=== PATIENT | male | born 1960 | race Caucasian/White ===

== ENCOUNTER 2018-11-14 09:19 | Day surgery (SDC) | payer BC ==
[~2018-11-14] VITALS: Ht 188 cm; Wt 111.6 kg
[~2018-11-14 09:19] MED LIST: LISI20TA PO; NS 1,000 ML IV ONE; OMEP20CA3 PO; PRAV40TA2 PO; VENTAER INH
[2018-11-14] MEDS ORDERED: PROPOFOL 500 MG/50 ML VIAL As Ordered ONE (10:52)
[2018-11-14] MEDS ORDERED: LIDOCAINE 2% INJ 100 MG/5 ML SDV (FOR ANES.) As Ordered ONE (10:52)
--- NOTE | 2018-11-14 11:09 | ROOR ---
Patient Name: Ángel Pierre Procedure Date: 11/14/2018 10:40 AM Date of : 1960 Age: 58 Room: [facility] Gender: Male Note Status: Finalized Procedure: Colonoscopy Indications: Screening for colorectal malignant neoplasm Providers: Willy Rushing MD Referring MD: Radha Felix NP Requesting Provider: Medicines: Monitored Anesthesia Care Complications: No immediate complications. Procedure: Pre-Anesthesia Assessment: - Prior to the procedure, a History and Physical was performed, and patient medications and allergies were reviewed. The patient is competent. The risks and benefits of the procedure and the sedation options and risks were discussed with the patient. All questions were answered and informed consent was obtained. Patient identification and proposed procedure were verified by the physician, the nurse and the anesthesiologist in the endoscopy suite. Mental Status Examination: alert and oriented. Airway Examination: normal oropharyngeal airway and neck mobility. Respiratory Examination: clear to auscultation. CV Examination: normal. Prophylactic Antibiotics: The patient does not require prophylactic antibiotics. Prior Anticoagulants: The patient has taken no previous anticoagulant or antiplatelet agents. ASA Grade Assessment: II - A patient with mild systemic disease. After reviewing the risks and benefits, the patient was deemed in satisfactory condition to undergo the procedure. The anesthesia plan was to use monitored anesthesia care (MAC). Immediately prior to administration of medications, the patient was re-assessed for adequacy to receive sedatives. The heart rate, respiratory rate, oxygen saturations, blood pressure, adequacy of pulmonary ventilation, and response to care were monitored throughout the procedure. The physical status of the patient was re-assessed after the procedure. The Colonoscope was introduced through the anus and advanced to the cecum, identified by appendiceal orifice and ileocecal valve. The colonoscopy was performed without difficulty. The patient tolerated the procedure well. The quality of the bowel preparation was good. Findings: The perianal and digital rectal examinations were normal. The colon (entire examined portion) appeared normal. Estimated blood loss: none. No additional abnormalities were found on retroflexion. Impression: - The entire examined colon is normal. - No specimens collected. Recommendation: - Discharge patient to home (ambulatory). - Repeat colonoscopy in 10 years for screening purposes. Willy Rushing MD Willy Rushing MD 11/14/2018 11:08:56 AM Electronically signed by Willy Rushing MD Number of Addenda: 0 Note Initiated On: 11/14/2018 10:40 AM Estimated Blood Loss: Estimated blood loss: none.
[2018-11-14 11:30] VITALS: BP 128/83
== END 2018-11-14 11:38 | disposition home or self-care (01) ==
LOC: M OPP 09:19
PROVIDERS: ATTEND Surgery
DX: Z12.11 Encounter for screening for malignant neoplasm of colon (principal)

== ENCOUNTER 2018-12-05 07:02 | Day surgery (SDC) | payer BC ==
[~2018-12-05] VITALS: Ht 188 cm; Wt 115.6 kg
[~2018-12-05 07:02] MED LIST changes: +LR 1,000 ML IV ONE; +METO1TAB32 PO; -NS 1,000 ML IV ONE
[2018-12-05] MEDS ORDERED: BUPIVACAINE HCL 0.25% 30 ML VIAL As Ordered ONE (07:53)
[2018-12-05] MEDS ORDERED: LIDOCAINE 1% SDV INJ 30 ML VIAL As Ordered ONE (07:53)
[2018-12-05] MEDS ORDERED: ALBUTEROL SULFATE 2.5 MG/0.5 ML INH NEB SOLN As Ordered ONE (08:06)
[2018-12-05] MEDS ORDERED: METOPROLOL SUCC *XL* 25MG TAB (TopROL *XL*) As Ordered ONE (08:06)
[2018-12-05] MEDS ORDERED: ALBUTEROL SULFATE 2.5 MG/0.5 ML INH NEB SOLN INH ONE (08:15)
[2018-12-05] MEDS ORDERED: LIDOCAINE 2% INJ 100 MG/5 ML SDV (FOR ANES.) As Ordered ONE (08:26)
[2018-12-05] MEDS ORDERED: fentaNYL 250 MCG/5 ML INJECTION (J3010) As Ordered ONE (08:26)
[2018-12-05] MEDS ORDERED: KETOROLAC 60 MG/2 ML VIAL (J1885) As Ordered ONE (08:26)
[2018-12-05] MEDS ORDERED: dexameTHASONE 4 MG/ML 1ML VIAL (J1100) As Ordered ONE (08:26)
[2018-12-05] MEDS ORDERED: MIDAZOLAM INJ 2 MG/2 ML VIAL (J2250) As Ordered ONE (08:27)
[2018-12-05] MEDS ORDERED: SUGAMMADEX SODIUM 500 MG/5 ML VIAL (BRIDION) As Ordered ONE (08:27)
[2018-12-05] MEDS ORDERED: ONDANSETRON 4MG/2ML VIAL (J2405) As Ordered ONE (08:27)
[2018-12-05] MEDS ORDERED: METOCLOPRAMIDE INJ 10MG/2ML VIAL (J2765) As Ordered ONE (08:27)
[2018-12-05] MEDS ORDERED: PROPOFOL 200 MG/20 ML VIAL As Ordered ONE (08:27)
[2018-12-05] MEDS ORDERED: ROCURONIUM BROMIDE 50 MG/5 ML VIAL As Ordered ONE ×2 (08:27→09:06)
[2018-12-05] MEDS ORDERED: PHENYLephrine HCL 500 MCG/5 ML (100MCG/ML) SYRINGE (J2370) As Ordered ONE (08:40)
[2018-12-05] MEDS ORDERED: ePHEDrine SULFATE 25 MG/5 ML(5MG/ML) SYRINGE As Ordered ONE ×2 (08:46→09:07)
[2018-12-05] MEDS ORDERED: ACETAMINOPHEN 1000MG 100ML IV BTL (OFIRMEV) (J0131 PER 10MG) As Ordered ONE (08:58)
[2018-12-05] MEDS ORDERED: OMEPRAZOLE 20 MG CAP PO SCH ×2 (09:00→21:00)
[2018-12-05] MEDS ORDERED: METOPROLOL SUCC *XL* 25MG TAB (TopROL *XL*) PO ONE (09:00)
--- NOTE | 2018-12-05 10:59 | ROOPDOC ---
[facility] Report Of Operation Report of Operation DATE OF PROCEDURE: 12/05/18 PREPROCEDURE DIAGNOSES: right inguinal hernia. POSTPROCEDURE DIAGNOSES: right indirect inguinal hernia. PROCEDURE: Robotic Assisted Laparoscopic Right Inguinal hernia repair with mesh (ZOILA 15 x 10 cm progrip mesh) SURGEON: Willy Rushing MD MARINA DRY DOCK MANAGER: Ariella rBuno NP ANESTHESIA: General Anesthesia. ESTIMATED BLOOD LOSS: Approximately 10 mL. COMPLICATIONS: none. REMARKS: 58 male moderately obese with large right indirect inguinal hernia. PROCEDURE NOTE: roughly 5 cm opening to the internal ring, redundant hernia sac and multiple cord lipomas/preperitoneal fat removed from the inguinal canal. A 15 x 10 cm progrip mesh placed at the preperitoneal space. DESCRIPTION OF PROCEDURE: Patient received 2 g of Ancef IV preoperatively for wound prophylaxis. Patient was brought to the operating room, placed supine on the operating table. Compression boots placed in both lower extremities for DVT prophylaxis. After adequate general anesthesia started, a avila catheter to decompress his urinary bladder was placed without difficulty. His abdomen and groin/pelvic area then prepped and draped in the usual sterile fashion. We paused for a surgical timeo ut using both pre-incision safety checklist to verify correct patient, procedure site and additional clinical information prior to beginning the procedure. Externally he has a moderate-sized protrusion from an indirect right inguinal hernia that goes down midway between the external ring and at times fully in the scrotum. This reduced spontaneously with him under general anesthesia. No evidence of left inguinal hernia externally. Entry to the abdomen done through a small incision 2 cms above the umbilical skin cleft. A Veress needle is inserted on a controlled fashion. CO2 insufflation started to pressure 15 mmHg. Using the same incision a 5 mm Visiport was then placed under direct vision of laparoscope. The insertion site was inspected for injury and none was found. Patient was then positioned on a Trendelenburg position with the symptomatic (right) side tilted upwards for adeq uate view of the hernia defect. 2 working ports placed to the right and left of the umbilicus along the same line. The [employer] robot tower was then positioned in between the patient's legs and the trochars docked onto the robot. I used a 30 8 mm camera, forced bipolar forceps attached to a bipolar cord and laparoscopic melquiades attached to a monopolar cord on my right hand. I then unscrubbed and took control of the camera and the laparoscopic instruments at the surgeon's console. Presence of right indirect inguinal hernia was confirmed with roughly a 3 cm opening through the left internal ring. All the contents of emptied out spontaneously prior to the pneumoperitoneum. The hernia sac on dissection was quite redundant redundant and long and scarred in to surrounding tissues within the inguinal canal including the preperitoneal cord lipomas and the spermatic cord structures. The left side has no hernia. The peritoneum was opened up about 5 cm above the superior edge of the fascial defect of the inguinal hernia starting at the medial umbilical ligament going in an arc-like fashion laterally towards the level of the anterior s uperior iliac spine. This was then dissected mostly bluntly away from the abdominal wall. On approaching the inguinal hernia defect, I started working on the hernia sac to reduce it back into the preperitoneal space. the hernia sac was pulled back into the preperitoneal space and carefully dissected off the testicular vessels and vas deferens. He has a large and redundant inguinal hernia sac which was fully reduced back into the abdomen. Both the testicular vessels and vas deferens were promptly identified and from the hernia sac. He is multiple pieces of cord lipoma removed that was encasing most of the course of the testicular vessels also partly lateral inferior to the course of the vas deferens. After further freeing up the hernia sac we continued dissecting it off inferiorly to from the vas deferens and testicular vessels. The preperitoneal space was dissected medially to expose the pubic tubercle up towards the symphysis pubis. The remaining areolar fibers were bluntly dissected away from the abdominal wall to create space for the mesh. After fully dissecting the preperitoneal space, we checked for adequate hemostasis. the direct hernia space and femoral space were visualized and no hernia, found on these area. A 10x15 cm polyester progrip mesh is chosen. I trimmed the lateral lower edge to accomodate his body habitus but maintained the coverage of the mesh. This was placed through the laparoscopic port into the abdomen. This was positioned in the preperitoneal space abutting the abdominal wall to adequately cover the indirect as well as direct hernia and femoral hernia space. I made sure the mesh was laying flat on the abdominal wall. This was secured onto the pubic tubercle with a single stitch of 2-0 Vicryl. The mesh was trimmed laterally to accomodate his body wall angulation. The peritoneal incison was then closed by using a running stitch of 2-0V LOC. The abdomen was examined for evidence of bleeding or inadvertent injury. The abdomen was then deflated. All ports were removed. The robot was undocked. I scrubbed back 10. The incisions were closed with 4-0 Monocryl in subcuticular fashion. Dermabond was used for wound coverage. The patient was then properly awakened, extubated. His Avila catheter was removed. No bleeding noted in the Avila bag. He was brought to the recovery room stable. All counts of sponges and instruments were verified correct. WILLY RUSHING MD Dec 05, 2018 10:59
[2018-12-05] MEDS ORDERED: NORCO, ANEXSIA 5/325MG TABLET (HYDROcodone/ACETAMINOPHEN) PO PRN (11:00)
[2018-12-05] MEDS ORDERED: ONDANSETRON 4MG/2ML VIAL (J2405) IV PRN ×2 (11:00→11:30)
[2018-12-05] MEDS ORDERED: ALBUTEROL 90 MCG/ACT 8GM HFA INHALER INH PRN (11:00)
[2018-12-05] MEDS ORDERED: KETOROLAC 30 MG/ML VIAL (J1885) IV PRN (11:00)
[2018-12-05] MEDS ORDERED: ACETAMINOPHEN TAB 650MG DOSE (2X325MG) PO PRN (11:00)
--- NOTE | 2018-12-05 11:29 | IPNPDOC ---
Text Note Date of Service The patient was seen on 12/05/18. NOTE Patient just completed a robotic-assisted laparoscopic repair of his large right inguinal hernia done under general anesthesia. He is a significant history for obstructive sleep apnea. Preoperative sleep testing documented desaturations down to 53% during the testing. He is noncompliant with his CPAP, has not been using it for a while, does not know where it is. Anesthesia is concerned about decompensation or worsening of the sleep apnea overnight. Just recently general anesthesia this he will be admitted overnight for monitoring. Since we don't have the capability to start BiPAP in the PCU with monitoring, he will need to be admitted in the ICU for postoperative monitoring, possible use of BiPAP if he desaturates to a significant degree. VS,Fishbone, I+O VS, Fishbone, I+O Vital Signs Date Time Temp Pulse Resp B/P (MAP) Pulse Ox O2 Delivery O2 Flow Rate FiO2 12/05/18 11:22 20 12/05/18 11:05 55 141/64 (89) 93 3 12/05/18 10:51 97.7 TAYLOR ROBERTSON MD Dec 05, 2018 11:29
[2018-12-05] MEDS ORDERED: fentaNYL 100 MCG/2 ML INJECTION (J3010) IV PRN (11:30)
[2018-12-05] MEDS ORDERED: oxyCODONE 5MG TAB PO PRN (11:30)
[2018-12-05] MEDS ORDERED: LR 1,000 ML IV SCH (11:30)
[2018-12-05 12:07] VITALS: BP 131/65
[2018-12-05] MEDS: SENOKOT S TAB PO SCH ×2 (12:59→20:51)
[2018-12-05 14:00] VITALS: BP 109/58
[2018-12-05 16:00] VITALS: BP 101/56
[2018-12-05 18:00] VITALS: BP 115/55
[2018-12-05 20:00] VITALS: BP 130/69
[2018-12-05] MEDS: NORCO, ANEXSIA 5/325MG TABLET (HYDROcodone/ACETAMINOPHEN) PO PRN (20:54)
[2018-12-05 20:55] VITALS: BP 130/69
[2018-12-05] MEDS ORDERED: PRAVASTATIN 20 MG TAB PO SCH (21:00)
[2018-12-05] MEDS ORDERED: LISINOPRIL 20 MG TAB PO SCH (21:00)
[2018-12-06] VITALS: BP 134/63
[2018-12-06 04:00] VITALS: BP 123/85
[2018-12-06] MEDS: NORCO, ANEXSIA 5/325MG TABLET (HYDROcodone/ACETAMINOPHEN) PO PRN (04:54)
[2018-12-06 08:00] VITALS: BP 119/59
[2018-12-06] MEDS ORDERED: METO1TAB32 PO (08:22)
[2018-12-06] MEDS ORDERED: HYDR-4571 PO (08:22)
[2018-12-06] MEDS ORDERED: GUAISYP5 PO (08:22)
--- NOTE | 2018-12-06 08:25 | IPNPDOC ---
Text Note Date of Service The patient was seen on 12/06/18. NOTE Patient admitted overnight for monitoring for sleep apnea. No serious desaturations noted. He did decide to rule out 89% when he was sleeping. Patient comfortable at the bedside. Not much perioperative swelling at the right groin. He still is coughing a lot, nonproductive cough. Exam Comfortable Clear breath sounds Abdomen nondistended Groin area no gross swelling, noticeable hematoma or seroma. Port sites are clean dry and intact Impression and plan Postop day 1 robotic-assisted laparoscopic right inguinal hernia repair Obstructive sleep apnea, noncompliant with his CPAP Patient is stable to go home. He is advised to consult with his medical doctor whether he needs testing for sleep apnea. He was noted to desaturate to 50% on his testing that was 6 years ago. I gave him prescription for guaifenesin for his cough is concerned this may disrupt the hernia repair. Certainly this puts him at risk for recurrence. He is also advised to stop smoking. Follow-up with me in 2 weeks. VS,Fishbone, I+O VS, Fishbone, I+O Vital Signs Date Time Temp Pulse Resp B/P (MAP) Pulse Ox O2 Delivery O2 Flow Rate FiO2 12/06/18 08:00 98.7 55 20 119/59 (79) 95 12/06/18 04:00 1.0 I&O- Last 24 Hours up to 6 AM 12/06/18 06:00 Intake Total 1520 ml Output Total 885 ml Balance 635 ml TAYLOR ROBERTSON MD Dec 06, 2018 08:25
[2018-12-06] MEDS: SENOKOT S TAB PO SCH (09:00)
[2018-12-06] MEDS ORDERED: METOPROLOL SUCC *XL* 25MG TAB (TopROL *XL*) PO SCH (09:00)
== END 2018-12-06 09:59 | disposition home or self-care (01) ==
LOC: M SDC 07:02 → M ICU 12:10 → M SDC 12-06 09:59
PROVIDERS: ATTEND Surgery
DX: K40.90 Unilateral inguinal hernia, without obstruction or gangrene, not specified as recurrent (principal); I10 Essential (primary) hypertension; K21.9 Gastro-esophageal reflux disease without esophagitis; E78.5 Hyperlipidemia, unspecified; Z79.899 Other long term (current) drug therapy; E66.9 Obesity, unspecified; F17.210 Nicotine dependence, cigarettes, uncomplicated; G47.33 Obstructive sleep apnea (adult) (pediatric); Z79.51 Long term (current) use of inhaled steroids
CPT/HCPCS: 49650; 94640; C1781; J0131; J0690; J1100; J1885; J2250; J2370; J2405; J2765; J3010

== ENCOUNTER → 2021-10-21 | Outpatient (CLI) | payer BC ==
[~2021-10-21] MED LIST changes: +GUAISYP5 PO; +HYDR-4571 PO; +ISOVUE-370 76% 100ML VIAL As Ordered ONE; -LISI20TA PO; +LISI20TA35 PO; -LR 1,000 ML IV ONE; +OMEP1CAP73 PO; -OMEP20CA3 PO
== END ==
LOC: M RAD 15:35
PROVIDERS: ATTEND Nurse Practitioner Adult Health
DX: K76.0 Fatty (change of) liver, not elsewhere classified (principal); Z84.89 Family history of other specified conditions
CPT/HCPCS: 71275; Q9967

== ENCOUNTER → 2022-04-13 | Outpatient (REF) | payer BC ==
[~2022-04-13] MED LIST changes: -ISOVUE-370 76% 100ML VIAL As Ordered ONE
== END ==
LOC: M LAB REF 12:13
PROVIDERS: ATTEND Nurse Practitioner Adult Health
DX: Z11.59 Encounter for screening for other viral diseases (principal)

== ENCOUNTER → 2022-10-11 | Outpatient (CLI) | payer BC | LOC: M WUC 11:37 | PROVIDERS: ATTEND Nurse Practitioner Adult Health | DX: R05.9 Cough, unspecified (principal); I51.7 Cardiomegaly; M48.14 Ankylosing hyperostosis [Forestier], thoracic region ==

== ENCOUNTER → 2023-10-25 | Outpatient (CLI) | payer BC | LOC: M WUC 14:49 | PROVIDERS: ATTEND Nurse Practitioner Adult Health | DX: R05.9 Cough, unspecified (principal) ==

== ENCOUNTER → 2024-06-04 | Outpatient (CLI) | payer BC | LOC: M RAD 13:31 | PROVIDERS: ATTEND Nurse Practitioner Adult Health | DX: Z12.2 Encounter for screening for malignant neoplasm of respiratory organs (principal); F17.210 Nicotine dependence, cigarettes, uncomplicated ==

== ENCOUNTER → 2024-06-24 | Outpatient (REF) | payer BC | LOC: M LAB REF 12:26 | PROVIDERS: ATTEND Nurse Practitioner Adult Health | DX: R53.83 Other fatigue (principal) ==

== ENCOUNTER → 2024-07-10 | Outpatient (CLI) | payer BC | LOC: M WUC 10:36 | PROVIDERS: ATTEND Nurse Practitioner Adult Health | DX: J02.9 Acute pharyngitis, unspecified (principal) ==